=== PATIENT | female | born 1955 | race Caucasian/White ===

== ENCOUNTER → 2016-04-07 | Outpatient (CLI) | payer BC ==
[~2016-04-07] MED LIST: ALPRAZOLAM0.25 MG PO; AMBIEN10 MG PO; CEFDINIR300 MG PO; NORCO 325 MG-51 TAB PO; PROTONIX40 MG PO; SYNTHROID0.025 MG PO
[2016-04-07 09:42] VITALS: BP 151/74
[2016-04-07 11:32] VITALS: BP 122/60
== END ==
LOC: AMSURD 09:36
DX: R11.2 Nausea with vomiting, unspecified (principal); R19.7 Diarrhea, unspecified; M54.9 Dorsalgia, unspecified; R51 Headache
CPT/HCPCS: J1885; J2405; J7030

== ENCOUNTER → 2016-04-12 | Outpatient (CLI) | payer BC | LOC: LAB 13:54 | DX: J02.9 Acute pharyngitis, unspecified (principal) ==

== ENCOUNTER → 2016-06-13 | Outpatient (CLI) | payer BC | LOC: RAD 11:21 | DX: M41.86 Other forms of scoliosis, lumbar region (principal); M50.322 Other cervical disc degeneration at C5-C6 level; M50.321 Other cervical disc degeneration at C4-C5 level ==

== ENCOUNTER 2017-01-27 07:40 | Emergency (ER) | payer BC ==
[~2017-01-27 07:40] MED LIST changes: +SYNTHROID RP0.1 MG PO; -SYNTHROID0.025 MG PO
[2017-01-27 08:30] LABS: BASO # 0.1 (0.02-0.10); EOS # 0.1 (0.04-0.40); EOS % 1.8 % (1.0-5.0); HEMATOCRIT 42.8 % (37.0-47.0); HEMOGLOBIN 14.1 g/dL (12.5-16.0); LYMPH# 1.4 (1.50-4.00); MEAN CELL VOLUME 92 fl (78-100); MEAN CORPUSCULAR HEMOGLOBIN 31 pg (27-31); MEAN CORPUSCULAR HGB CONC 33 g/dL (33-37); MONO # 0.8 (0.20-0.80); NEU # 4.7 (1.40-6.50); PLATELET COUNT 315 K/mm3 (130-400); RED BLOOD COUNT 4.63 M/mm3 (4.10-5.30); WHITE BLOOD COUNT 7.1 K/mm3 (4.8-10.8)
[2017-01-27 08:38] LABS: ALBUMIN 4.4 g/dL (3.5-5.0); BUN/CREATININE RATIO 16.7 (6.0-26.0); CALCIUM 9.5 mg/dL (8.4-10.2); POTASSIUM 3.8 mmol/L (3.6-5.0); TOTAL BILIRUBIN 0.7 mg/dL (0.2-1.3); TOTAL PROTEIN 7.5 g/dL (6.3-8.2)
[2017-01-27 08:45] LABS: CKMB ISOENZYME 0.5 ng/mL (0.6-3.5)
[2017-01-27 08:49] LABS: TROPONIN-I < 0.03 ng/mL (0.00-0.06)
[2017-01-27 10:06] LABS: URINE APPEARANCE CLEAR; URINE BILIRUBIN NEGATIVE (NEGATIVE); URINE BLOOD NEGATIVE (NEGATIVE); URINE COLOR YELLOW; URINE GLUCOSE NEGATIVE (NEGATIVE); URINE KETONE NEGATIVE (NEGATIVE); URINE LEUKOCYTE ESTERASE NEGATIVE (NEGATIVE); URINE MUCUS PRESENT (NOT PRESENT); URINE NITRATE NEGATIVE (NEGATIVE); URINE PROTEIN(semi-quant) NEGATIVE (NEGATIVE); URINE UROBILINOGEN NORMAL (NORMAL); URINE WBC 0-1 /hpf (0-3)
[2017-01-27] MEDS ORDERED: TYLENOL 325MG325 MG PO (10:28)
[2017-01-27] MEDS ORDERED: MULTI VITAMINS1 TAB PO (10:28)
[2017-01-27] MEDS ORDERED: CALCIUM500 M1 (10:29)
[2017-01-27] MEDS ORDERED: CULTURELLE1 EACH PO (10:29)
[2017-01-27] MEDS ORDERED: LYSINE 500500 MG/TAB (10:29)
[2017-01-27] MEDS ORDERED: MAGNESIUM CHELA27 MG (10:29)
[2017-01-27] MEDS ORDERED: TURMERIC1 POW (10:32)
[2017-01-27] MEDS ORDERED: PERCOCET 325 MG1 TA2 PO (12:14)
[2017-01-27] MEDS ORDERED: ZOFRAN ODT8 M1 PO (12:14)
[2017-01-27 12:24] VITALS: BP 121/68
== END 2017-01-27 12:34 | disposition home or self-care (01) ==
LOC: ED 07:40
PROVIDERS: Physician Assistant
DX: B34.9 Viral infection, unspecified (principal); R51 Headache; R11.2 Nausea with vomiting, unspecified; E03.9 Hypothyroidism, unspecified; F41.9 Anxiety disorder, unspecified; K21.9 Gastro-esophageal reflux disease without esophagitis; E04.1 Nontoxic single thyroid nodule; R07.9 Chest pain, unspecified; R19.7 Diarrhea, unspecified; R00.0 Tachycardia, unspecified; Z88.8 Allergy status to other drugs, medicaments and biological substances
CPT/HCPCS: J1885; J2405; J2550; J7120

== ENCOUNTER 2017-05-18 16:58 | Inpatient (IN) | payer BC ==
[~2017-05-18] VITALS: Ht 165.1 cm; Wt 64.0 kg
[~2017-05-18 16:58] MED LIST changes: -ACETAMINOPHEN-H1 TA2 PO; -LEVOTHYROXIN0.088 MG PO; -PANTOPRAZOLE SO40 MG PO
[2017-05-18] MEDS ORDERED: LEVOTHYROXIN0.088 MG PO (17:41)
[2017-05-18] MEDS ORDERED: ALPRAZOLAM0.25 MG PO (17:42)
[2017-05-18] MEDS ORDERED: PANTOPRAZOLE SO40 MG PO (17:43)
[2017-05-18] MEDS ORDERED: ACETAMINOPHEN-H1 TA2 PO (17:44)
[2017-05-18 19:01] VITALS: BP 158/84
[2017-05-18 19:04] VITALS: BP 158/84
[2017-05-18 23:46] VITALS: BP 143/68
[2017-05-19 03:05] VITALS: BP 120/55
[2017-05-19 06:24] VITALS: BP 136/71
[2017-05-19 07:02] LABS: ALBUMIN 4.1 g/dL (3.5-5.0); BUN/CREATININE RATIO 6.8 (6.0-26.0); HEMATOCRIT 36.3 % (37.0-47.0); HEMOGLOBIN 11.9 g/dL (12.5-16.0); MEAN CELL VOLUME 91 fl (78-100); MEAN CORPUSCULAR HEMOGLOBIN 30 pg (27-31); MEAN CORPUSCULAR HGB CONC 33 g/dL (33-37); PLATELET COUNT 359 K/mm3 (130-400); RED BLOOD COUNT 3.98 M/mm3 (4.10-5.30); RED CELL DISTRIBUTION WIDTH 12.5 % (11.5-14.5); TOTAL BILIRUBIN 0.3 mg/dL (0.2-1.3); TOTAL PROTEIN 7.8 g/dL (6.3-8.2); WHITE BLOOD COUNT 10.3 K/mm3 (4.8-10.8)
[2017-05-19 07:16] LABS: LYMPHOCYTE 6 % (20-51); MONOCYTE 9 % (3-10); NEUTROPHILS 85 % (42-75)
[2017-05-19 11:28] VITALS: BP 138/65
[2017-05-19 15:30] VITALS: BP 150/89
[2017-05-19 19:10] VITALS: BP 131/59
[2017-05-19 23:04] VITALS: BP 129/57
[2017-05-20 02:31] VITALS: BP 130/60
[2017-05-20 06:25] VITALS: BP 127/69
[2017-05-20 11:29] VITALS: BP 144/74
[2017-05-20 12:15] LABS: BUN/CREATININE RATIO 10.7 (6.0-26.0); CALCIUM 9.4 mg/dL (8.4-10.2); POTASSIUM 3.8 mmol/L (3.6-5.0)
[2017-05-20 15:08] VITALS: BP 149/74
[2017-05-20 18:44] VITALS: BP 130/69
== END 2017-05-20 19:03 | disposition home or self-care (01) | DRG 195 ==
LOC: MED/SURG 16:58
PROVIDERS: ADMIT Internal Medicine
DX: J18.9 Pneumonia, unspecified organism (principal); R09.02 Hypoxemia; E03.9 Hypothyroidism, unspecified; F41.1 Generalized anxiety disorder; K21.9 Gastro-esophageal reflux disease without esophagitis; G47.00 Insomnia, unspecified; R91.1 Solitary pulmonary nodule; E04.1 Nontoxic single thyroid nodule
CPT/HCPCS: J1650; J1956; J2920; J2930; J3480

== ENCOUNTER → 2017-05-18 | Outpatient (CLI) | payer BC ==
[~2017-05-18] MED LIST changes: +ACETAMINOPHEN-H1 TA2 PO; +CALCIUM500 M1; +CULTURELLE1 EACH PO; +LEVOTHYROXIN0.088 MG PO; +LYSINE 500500 MG/TAB; +MAGNESIUM CHELA27 MG; +MULTI VITAMINS1 TAB PO; +PANTOPRAZOLE SO40 MG PO; +PERCOCET 325 MG1 TA2 PO; +TURMERIC1 POW; +TYLENOL 325MG325 MG PO; +ZOFRAN ODT8 M1 PO
[2017-05-18 16:20] LABS: BASO # 0.2 (0.02-0.10); EOS # 0.3 (0.04-0.40); EOS % 2.7 % (1.0-5.0); HEMATOCRIT 39.4 % (37.0-47.0); HEMOGLOBIN 12.9 g/dL (12.5-16.0); LYMPH# 2.1 (1.50-4.00); MEAN CELL VOLUME 92 fl (78-100); MEAN CORPUSCULAR HEMOGLOBIN 30 pg (27-31); MEAN CORPUSCULAR HGB CONC 33 g/dL (33-37); MEAN PLATELET VOLUME 9.8 fl (7.4-10.4); MONO # 1.2 (0.20-0.80); NEU # 6.9 (1.40-6.50); PLATELET COUNT 334 K/mm3 (130-400); RED BLOOD COUNT 4.29 M/mm3 (4.10-5.30); RED CELL DISTRIBUTION WIDTH 12.8 % (11.5-14.5); WHITE BLOOD COUNT 10.6 K/mm3 (4.8-10.8)
[2017-05-18 16:35] LABS: ALBUMIN 4.2 g/dL (3.5-5.0); BUN/CREATININE RATIO 4.7 (6.0-26.0); CALCIUM 8.8 mg/dL (8.4-10.2); POTASSIUM 3.7 mmol/L (3.6-5.0); TOTAL BILIRUBIN 0.4 mg/dL (0.2-1.3); TOTAL PROTEIN 8.1 g/dL (6.3-8.2)
== END ==
LOC: RAD 16:06
PROVIDERS: Internal Medicine
DX: R91.1 Solitary pulmonary nodule (principal); R05 Cough; R50.9 Fever, unspecified; R06.02 Shortness of breath; Z88.1 Allergy status to other antibiotic agents

== ENCOUNTER → 2017-05-25 | Outpatient (CLI) | payer BC ==
[2017-05-20 18:44] VITALS: BP 130/69
[~2017-05-25] MED LIST changes: +ACETAMINOPHEN-H1 TA2 PO; +LEVOTHYROXIN0.088 MG PO; +PANTOPRAZOLE SO40 MG PO
[2017-05-25 08:22] LABS: HEMATOCRIT 40.8 % (37.0-47.0); HEMOGLOBIN 13.2 g/dL (12.5-16.0); MEAN CELL VOLUME 93 fl (78-100); MEAN CORPUSCULAR HEMOGLOBIN 30 pg (27-31); MEAN CORPUSCULAR HGB CONC 32 g/dL (33-37); MEAN PLATELET VOLUME 8.7 fl (7.4-10.4); PLATELET COUNT 430 K/mm3 (130-400); RED BLOOD COUNT 4.41 M/mm3 (4.10-5.30); RED CELL DISTRIBUTION WIDTH 13.9 % (11.5-14.5); WHITE BLOOD COUNT 6.7 K/mm3 (4.8-10.8)
[2017-05-25 08:32] LABS: ALBUMIN 4.1 g/dL (3.5-5.0); CALCIUM 9.1 mg/dL (8.4-10.2); POTASSIUM 4.1 mmol/L (3.6-5.0); TOTAL BILIRUBIN 0.6 mg/dL (0.2-1.3); TOTAL PROTEIN 7.5 g/dL (6.3-8.2)
[2017-05-25 08:33] LABS: LYMPHOCYTE 18 % (20-51); MONOCYTE 11 % (3-10); NEUTROPHILS 64 % (42-75)
[2017-05-25 09:28] LABS: ERYTHROCYTE SEDIMENTATION RATE 43 mm/hr (0-30)
== END ==
LOC: RAD 08:04
PROVIDERS: Internal Medicine
DX: R91.8 Other nonspecific abnormal finding of lung field (principal); R91.1 Solitary pulmonary nodule; J18.9 Pneumonia, unspecified organism; J98.01 Acute bronchospasm; Z88.1 Allergy status to other antibiotic agents

== ENCOUNTER → 2017-11-30 | Outpatient (CLI) | payer BC ==
[2017-11-30 16:52] LABS: BASO # 0.1 (0.02-0.10); EOS # 0.2 (0.04-0.40); EOS % 3.4 % (1.0-5.0); HEMATOCRIT 40.3 % (37.0-47.0); HEMOGLOBIN 13.3 g/dL (12.5-16.0); LYMPH# 1.5 (1.50-4.00); MEAN CELL VOLUME 93 fl (78-100); MEAN CORPUSCULAR HEMOGLOBIN 31 pg (27-31); MEAN CORPUSCULAR HGB CONC 33 g/dL (33-37); MEAN PLATELET VOLUME 10.9 fl (7.4-10.4); MONO # 0.7 (0.20-0.80); NEU # 3.9 (1.40-6.50); PLATELET COUNT 256 K/mm3 (130-400); RED BLOOD COUNT 4.35 M/mm3 (4.10-5.30); RED CELL DISTRIBUTION WIDTH 13.4 % (11.5-14.5); WHITE BLOOD COUNT 6.4 K/mm3 (4.8-10.8)
[2017-11-30 16:58] LABS: ALBUMIN 4.4 g/dL (3.5-5.0); POTASSIUM 4.1 mmol/L (3.6-5.0); TOTAL BILIRUBIN 0.4 mg/dL (0.2-1.3); TOTAL PROTEIN 7.2 g/dL (6.3-8.2)
[2017-11-30 17:58] LABS: ERYTHROCYTE SEDIMENTATION RATE 11 mm/hr (0-30)
[2017-12-01 18:02] LABS: T3 TOTAL 72 ng/dL (87-178)
== END ==
LOC: LAB 16:08
PROVIDERS: Internal Medicine
DX: Z12.11 Encounter for screening for malignant neoplasm of colon (principal); Z00.00 Encounter for general adult medical examination without abnormal findings

== ENCOUNTER → 2018-03-08 | Outpatient (CLI) | payer BC ==
[2018-03-08 12:13] LABS: ALBUMIN 4.3 g/dL (3.5-5.0); DIRECT BILIRUBIN 0.3 mg/dL (0.0-0.4); TOTAL BILIRUBIN 0.4 mg/dL (0.2-1.3); TOTAL PROTEIN 6.8 g/dL (6.3-8.2)
[2018-03-09 17:22] LABS: T3 TOTAL 90 ng/dL (87-178)
== END ==
LOC: LAB 11:34
PROVIDERS: Internal Medicine
DX: Z00.00 Encounter for general adult medical examination without abnormal findings (principal); R94.5 Abnormal results of liver function studies

== ENCOUNTER → 2018-05-02 | Outpatient (CLI) | payer BC | LOC: RAD 10:41 | DX: M47.818 Spondylosis without myelopathy or radiculopathy, sacral and sacrococcygeal region (principal); M25.552 Pain in left hip ==

== ENCOUNTER → 2018-05-09 | Outpatient (CLI) | payer BC ==
[2018-05-09 11:49] LABS: ALBUMIN 4.2 g/dL (3.5-5.0); CALCIUM 8.6 mg/dL (8.4-10.2); POTASSIUM 3.6 mmol/L (3.6-5.0); TOTAL BILIRUBIN 0.5 mg/dL (0.2-1.3); TOTAL PROTEIN 7.2 g/dL (6.3-8.2)
[2018-05-09 11:56] LABS: HEMATOCRIT 37.7 % (37.0-47.0); HEMOGLOBIN 12.3 g/dL (12.5-16.0); MEAN CELL VOLUME 93 fl (78-100); MEAN CORPUSCULAR HEMOGLOBIN 30 pg (27-31); MEAN CORPUSCULAR HGB CONC 33 g/dL (33-37); MEAN PLATELET VOLUME 10.1 fl (7.4-10.4); PLATELET COUNT 258 K/mm3 (130-400); RED BLOOD COUNT 4.06 M/mm3 (4.10-5.30); RED CELL DISTRIBUTION WIDTH 13.4 % (11.5-14.5); WHITE BLOOD COUNT 7.6 K/mm3 (4.8-10.8)
[2018-05-09 12:17] LABS: LYMPHOCYTE 8 % (20-51); MONOCYTE 15 % (3-10); NEUTROPHILS 77 % (42-75)
== END ==
LOC: LAB 11:05
PROVIDERS: Physician Assistant
DX: R91.1 Solitary pulmonary nodule (principal); R50.9 Fever, unspecified; J98.9 Respiratory disorder, unspecified

== ENCOUNTER → 2018-05-21 | Outpatient (CLI) | payer BC ==
[2018-05-21 17:06] LABS: HEMATOCRIT 40.9 % (37.0-47.0); HEMOGLOBIN 13.2 g/dL (12.5-16.0); MEAN CELL VOLUME 93 fl (78-100); MEAN CORPUSCULAR HEMOGLOBIN 30 pg (27-31); MEAN CORPUSCULAR HGB CONC 32 g/dL (33-37); MEAN PLATELET VOLUME 9.4 fl (7.4-10.4); PLATELET COUNT 429 K/mm3 (130-400); RED BLOOD COUNT 4.39 M/mm3 (4.10-5.30); RED CELL DISTRIBUTION WIDTH 15.1 % (11.5-14.5)
[2018-05-21 17:27] LABS: ALBUMIN 4.4 g/dL (3.5-5.0); CALCIUM 9.5 mg/dL (8.4-10.2); POTASSIUM 4.5 mmol/L (3.6-5.0); TOTAL BILIRUBIN 0.4 mg/dL (0.2-1.3); TOTAL PROTEIN 7.1 g/dL (6.3-8.2)
[2018-05-21 18:04] LABS: LYMPHOCYTE 9 % (20-51); MONOCYTE 4 % (3-10); NEUTROPHILS 87 % (42-75)
[2018-05-21 18:13] LABS: ERYTHROCYTE SEDIMENTATION RATE 8 mm/hr (0-30)
== END ==
LOC: LAB 16:09
PROVIDERS: Internal Medicine
DX: J18.1 Lobar pneumonia, unspecified organism (principal); R91.8 Other nonspecific abnormal finding of lung field
CPT/HCPCS: Q9967

== ENCOUNTER → 2018-08-16 | Outpatient (CLI) | payer BC ==
[2018-08-16 16:01] LABS: EOS # 0.2 (0.04-0.40); EOS % 2.3 % (1.0-5.0); HEMATOCRIT 41.2 % (37.0-47.0); HEMOGLOBIN 13.3 g/dL (12.5-16.0); LYMPH# 1.4 (1.50-4.00); MEAN CELL VOLUME 94 fl (78-100); MEAN CORPUSCULAR HEMOGLOBIN 30 pg (27-31); MEAN CORPUSCULAR HGB CONC 32 g/dL (33-37); MEAN PLATELET VOLUME 9.6 fl (7.4-10.4); MONO # 0.6 (0.20-0.80); NEU # 4.3 (1.40-6.50); PLATELET COUNT 286 K/mm3 (130-400); RED BLOOD COUNT 4.39 M/mm3 (4.10-5.30); RED CELL DISTRIBUTION WIDTH 13.3 % (11.5-14.5); WHITE BLOOD COUNT 6.5 K/mm3 (4.8-10.8)
[2018-08-16 16:34] LABS: ALBUMIN 4.4 g/dL (3.4-4.8); CALCIUM 9.6 mg/dL (8.3-10.5); POTASSIUM 3.8 mmol/L (3.5-5.1); TOTAL BILIRUBIN 0.3 mg/dL (0.2-1.2)
[2018-08-16 17:11] LABS: ERYTHROCYTE SEDIMENTATION RATE 18 mm/hr (0-30)
[2018-08-17 20:21] LABS: ANA SCREEN with REFLEX Negative (Negative)
[2018-08-17 21:27] LABS: T3 TOTAL 81 ng/dL (87-178)
== END ==
LOC: RAD 15:42
PROVIDERS: Physician Assistant
DX: M19.071 Primary osteoarthritis, right ankle and foot (principal); E03.9 Hypothyroidism, unspecified; M25.552 Pain in left hip

== ENCOUNTER → 2018-11-07 | Outpatient (CLI) | payer BC ==
[2018-11-09 12:26] LABS: SEX HORMONE BINDING GLOBULIN 66.7 nmol/L (())
== END ==
LOC: LAB 08:30
PROVIDERS: Internal Medicine
DX: E03.9 Hypothyroidism, unspecified (principal)

== ENCOUNTER → 2018-12-31 | Outpatient (CLI) | payer BC ==
[2018-12-31 09:42] LABS: EOS # 0.2 (0.04-0.40); EOS % 2.8 % (1.0-5.0); HEMATOCRIT 44.6 % (37.0-47.0); HEMOGLOBIN 14.4 g/dL (12.5-16.0); LYMPH# 1.3 (1.50-4.00); MEAN CELL VOLUME 93 fl (78-100); MEAN CORPUSCULAR HEMOGLOBIN 30 pg (27-31); MEAN CORPUSCULAR HGB CONC 32 g/dL (33-37); MEAN PLATELET VOLUME 10.2 fl (7.4-10.4); MONO # 0.6 (0.20-0.80); NEU # 3.3 (1.40-6.50); PLATELET COUNT 301 K/mm3 (130-400); RED BLOOD COUNT 4.82 M/mm3 (4.10-5.30); RED CELL DISTRIBUTION WIDTH 12.7 % (11.5-14.5); WHITE BLOOD COUNT 5.4 K/mm3 (4.8-10.8)
[2018-12-31 10:01] LABS: POTASSIUM 4.2 mmol/L (3.5-5.1)
[2018-12-31 10:02] LABS: ALBUMIN 4.6 g/dL (3.4-4.8)
[2018-12-31 10:03] LABS: CALCIUM 9.7 mg/dL (8.3-10.5)
[2018-12-31 10:04] LABS: TOTAL PROTEIN 7.7 g/dL (6.2-8.1)
[2018-12-31 10:06] LABS: TOTAL BILIRUBIN 0.4 mg/dL (0.2-1.2)
[2018-12-31 10:55] LABS: ERYTHROCYTE SEDIMENTATION RATE 12 mm/hr (0-30)
== END ==
LOC: LAB 09:19
PROVIDERS: Internal Medicine
DX: Z00.00 Encounter for general adult medical examination without abnormal findings (principal); Z12.11 Encounter for screening for malignant neoplasm of colon

== ENCOUNTER → 2019-01-23 | Outpatient (CLI) | payer BC | LOC: RAD 10:00 → MAMMO 10:00 → RAD 10:13 | DX: Z12.31 Encounter for screening mammogram for malignant neoplasm of breast (principal); Z13.820 Encounter for screening for osteoporosis; M85.852 Other specified disorders of bone density and structure, left thigh ==

== ENCOUNTER → 2019-02-18 | Outpatient (CLI) | payer BC | LOC: LAB 10:04 | DX: E03.9 Hypothyroidism, unspecified (principal) ==

== ENCOUNTER → 2019-04-15 | Outpatient (CLI) | payer BC ==
[2019-04-15 22:50] LABS: IGM,SERUM 68 mg/dL (33-293); IMMUNOGLOBULIN A 140 mg/dL (69-517); IMMUNOGLOBULIN G 617 mg/dL (552-1631)
== END ==
LOC: LAB 09:46
PROVIDERS: Internal Medicine
DX: J45.901 Unspecified asthma with (acute) exacerbation (principal); J20.8 Acute bronchitis due to other specified organisms

== ENCOUNTER → 2019-07-11 | Outpatient (CLI) | payer BC ==
[2019-07-12] LABS: T3 TOTAL 71 ng/dL (87-178)
== END ==
LOC: LAB 15:05
PROVIDERS: Internal Medicine Endocrinology, Diabetes & Metabolism
DX: E03.9 Hypothyroidism, unspecified (principal); R63.5 Abnormal weight gain; G47.00 Insomnia, unspecified

== ENCOUNTER → 2019-08-26 | Outpatient (CLI) | payer BC | LOC: LAB 09:48 | DX: E03.9 Hypothyroidism, unspecified (principal) ==

== ENCOUNTER → 2019-12-31 | Outpatient (CLI) | payer BC | LOC: LAB 09:38 | DX: E03.9 Hypothyroidism, unspecified (principal) ==

== ENCOUNTER → 2020-01-13 | Outpatient (CLI) | payer BC | LOC: LAB 08:16 | DX: Z01.818 Encounter for other preprocedural examination (principal); Z20.828 Contact with and (suspected) exposure to other viral communicable diseases ==

== ENCOUNTER → 2020-02-10 | Outpatient (CLI) | payer BC ==
[2020-02-10 12:29] LABS: BASO # 0.1 (0.02-0.10); EOS # 0.1 (0.04-0.40); EOS % 2.1 % (1.0-5.0); HEMATOCRIT 43.2 % (37.0-47.0); HEMOGLOBIN 13.9 g/dL (12.5-16.0); LYMPH# 1.4 (1.50-4.00); MEAN CELL VOLUME 94 fl (78-100); MEAN CORPUSCULAR HEMOGLOBIN 30 pg (27-31); MEAN CORPUSCULAR HGB CONC 32 g/dL (33-37); MEAN PLATELET VOLUME 9.8 fl (7.4-10.4); MONO # 0.6 (0.20-0.80); NEU # 3.6 (1.40-6.50); PLATELET COUNT 308 K/mm3 (130-400); RED BLOOD COUNT 4.61 M/mm3 (4.10-5.30); RED CELL DISTRIBUTION WIDTH 13.3 % (11.5-14.5); WHITE BLOOD COUNT 5.7 K/mm3 (4.8-10.8)
[2020-02-10 12:41] LABS: ALBUMIN 4.4 g/dL (3.4-4.8); POTASSIUM 4.1 mmol/L (3.5-5.1)
[2020-02-10 12:42] LABS: CALCIUM 9.7 mg/dL (8.3-10.5)
[2020-02-10 12:43] LABS: TOTAL PROTEIN 7.2 g/dL (6.2-8.1)
[2020-02-10 12:45] LABS: TOTAL BILIRUBIN 0.4 mg/dL (0.2-1.2)
[2020-02-10 12:50] LABS: MAGNESIUM 2.3 mg/dL (1.60-2.60)
[2020-02-10 13:31] LABS: ERYTHROCYTE SEDIMENTATION RATE 18 mm/hr (0-30)
== END ==
LOC: LAB 12:14
PROVIDERS: Internal Medicine
DX: Z00.01 Encounter for general adult medical examination with abnormal findings (principal); Z12.11 Encounter for screening for malignant neoplasm of colon

== ENCOUNTER → 2020-03-11 | Outpatient (CLI) | payer MEDICARE, OTHER | LOC: LAB 09:39 | DX: M89.9 Disorder of bone, unspecified (principal); Z20.828 Contact with and (suspected) exposure to other viral communicable diseases ==

== ENCOUNTER 2020-05-20 08:03 | Outpatient (RCR) | payer MEDICARE, OTHER | END 2020-06-25 16:30 | disposition home or self-care (01) | LOC: PT 08:03 | DX: R51.9 Headache, unspecified (principal) ==

== ENCOUNTER → 2020-06-29 | Outpatient (CLI) | payer MEDICARE, OTHER ==
[~2020-06-29] MED LIST changes: +AMOXICILLIN AND1 TA2 PO; +LIOTHYRONINE SO5 MCG PO; +SINGULAIR PO; +SYNTHROID RP0.088 MG PO; +ZYRTEC ALLERGY10 MG PO
== END ==
LOC: RAD 10:51
DX: M50.322 Other cervical disc degeneration at C5-C6 level (principal); M43.12 Spondylolisthesis, cervical region

== ENCOUNTER 2020-07-14 04:43 | Emergency (ER) | payer MEDICARE, OTHER ==
[~2020-07-14 04:43] MED LIST changes: -AMOXICILLIN AND1 TA2 PO; -LIOTHYRONINE SO5 MCG PO; -SINGULAIR PO; -SYNTHROID RP0.088 MG PO; -ZYRTEC ALLERGY10 MG PO
[2020-07-14] MEDS ORDERED: SYNTHROID RP0.088 MG PO (04:49)
[2020-07-14] MEDS ORDERED: SINGULAIR PO (04:50)
[2020-07-14] MEDS ORDERED: ZYRTEC ALLERGY10 MG PO (04:50)
[2020-07-14] MEDS ORDERED: LIOTHYRONINE SO5 MCG PO (05:15)
[2020-07-14 05:57] LABS: URINE WBC 0 /hpf (0-3)
[2020-07-14 06:27] LABS: HEMATOCRIT 42.8 % (37.0-47.0); HEMOGLOBIN 13.5 g/dL (12.5-16.0); MEAN CELL VOLUME 94 fl (78-100); MEAN CORPUSCULAR HEMOGLOBIN 30 pg (27-31); MEAN CORPUSCULAR HGB CONC 32 g/dL (33-37); MEAN PLATELET VOLUME 9.8 fl (7.4-10.4); PLATELET COUNT 265 K/mm3 (130-400); RED BLOOD COUNT 4.57 M/mm3 (4.10-5.30); RED CELL DISTRIBUTION WIDTH 12.9 % (11.5-14.5); WHITE BLOOD COUNT 5.7 K/mm3 (4.8-10.8)
[2020-07-14 06:30] LABS: URINE APPEARANCE CLEAR; URINE BILIRUBIN NEGATIVE (NEGATIVE); URINE BLOOD NEGATIVE (NEGATIVE); URINE COLOR YELLOW; URINE GLUCOSE NEGATIVE (NEGATIVE); URINE KETONE NEGATIVE (NEGATIVE); URINE LEUKOCYTE ESTERASE NEGATIVE (NEGATIVE); URINE NITRATE NEGATIVE (NEGATIVE); URINE PROTEIN(semi-quant) NEGATIVE (NEGATIVE); URINE UROBILINOGEN NORMAL (NORMAL)
[2020-07-14 06:32] LABS: ALBUMIN 4.3 g/dL (3.4-4.8); POTASSIUM 4.1 mmol/L (3.5-5.1); SODIUM 138 mmol/L (136-145)
[2020-07-14 06:33] LABS: CALCIUM 8.9 mg/dL (8.3-10.5)
[2020-07-14 06:34] LABS: GLUCOSE 89 mg/dL (65-105); TOTAL PROTEIN 6.9 g/dL (6.2-8.1)
[2020-07-14 06:35] LABS: CARBON DIOXIDE 25 mmol/L (23-31)
[2020-07-14 06:36] LABS: TOTAL BILIRUBIN 0.7 mg/dL (0.2-1.2)
[2020-07-14 06:40] LABS: AST-SGOT 194 U/L (5-34)
[2020-07-14 06:41] LABS: ALT/SGPT 153 U/L (0-55); LIPASE 104 U/L (8-78)
[2020-07-14 06:44] LABS: LYMPHOCYTE 30 % (20-51); MONOCYTE 6 % (3-10); NEUTROPHILS 60 % (42-75)
[2020-07-14 06:51] LABS: PARTIAL THROMBOPLASTIN TIME 24.9 SECONDS (21.0-32.0); PROTHROMBIN TIME 10.4 SECONDS (9.0-12.0)
[2020-07-14 06:52] LABS: D-DIMER 0.75 mg/L FEU (0.15-0.50); TROPONIN-I < 0.03 ng/mL (<0.030)
[2020-07-14 09:53] VITALS: BP 143/77
== END 2020-07-14 09:54 ==
LOC: ED 04:43
PROVIDERS: Nurse Practitioner
DX: R07.9 Chest pain, unspecified (principal); F41.9 Anxiety disorder, unspecified; K21.9 Gastro-esophageal reflux disease without esophagitis; E07.9 Disorder of thyroid, unspecified; G47.00 Insomnia, unspecified; Z79.899 Other long term (current) drug therapy; Z79.890 Hormone replacement therapy
CPT/HCPCS: C9113; Q9967

== ENCOUNTER → 2020-07-28 | Outpatient (CLI) | payer MEDICARE, OTHER ==
[2020-07-14 09:53] VITALS: BP 143/77
[~2020-07-28] MED LIST changes: +AMOXICILLIN AND1 TA2 PO; +LIOTHYRONINE SO5 MCG PO; +SINGULAIR PO; +SYNTHROID RP0.088 MG PO; +ZYRTEC ALLERGY10 MG PO
[2020-07-28 16:24] LABS: ALBUMIN 4.5 g/dL (3.4-4.8)
[2020-07-28 16:27] LABS: TOTAL PROTEIN 7.3 g/dL (6.2-8.1)
[2020-07-28 16:28] LABS: TOTAL BILIRUBIN 0.2 mg/dL (0.2-1.2)
[2020-07-28 16:32] LABS: DIRECT BILIRUBIN 0.1 mg/dL (0.0-0.5)
== END ==
LOC: LAB 16:08
PROVIDERS: Internal Medicine
DX: R11.2 Nausea with vomiting, unspecified (principal); E03.9 Hypothyroidism, unspecified

== ENCOUNTER 2020-12-10 14:03 | Emergency (ER) | payer MEDICARE, OTHER ==
[~2020-12-10 14:03] MED LIST changes: -AMOXICILLIN AND1 TA2 PO
[2020-12-10] MEDS ORDERED: AMOXICILLIN AND1 TA2 PO (14:13)
[2020-12-10 15:29] LABS: BASO # 0.06 (0.02-0.10); EOS # 0.13 (0.04-0.40); EOS % 1.4 % (1.0-5.0); HEMATOCRIT 43.4 % (37.0-47.0); HEMOGLOBIN 13.8 g/dL (12.5-16.0); LYMPH# 1.13 (1.50-4.00); MEAN CELL VOLUME 97 fl (78-100); MEAN CORPUSCULAR HEMOGLOBIN 31 pg (27-31); MEAN CORPUSCULAR HGB CONC 32 g/dL (33-37); MONO # 0.94 (0.20-0.80); NEU # 7.19 (1.40-6.50); PLATELET COUNT 282 K/mm3 (130-400); RED BLOOD COUNT 4.49 M/mm3 (4.10-5.30); RED CELL DISTRIBUTION WIDTH 13.5 % (11.5-14.5); WHITE BLOOD COUNT 9.5 K/mm3 (4.8-10.8)
[2020-12-10 15:38] LABS: ALBUMIN 4.5 g/dL (3.4-4.8); POTASSIUM 3.8 mmol/L (3.5-5.1); SODIUM 142 mmol/L (136-145)
[2020-12-10 15:40] LABS: GLUCOSE 103 mg/dL (65-105)
[2020-12-10 15:41] LABS: TOTAL PROTEIN 7.6 g/dL (6.2-8.1)
[2020-12-10 15:42] LABS: CARBON DIOXIDE 26 mmol/L (23-31); TOTAL BILIRUBIN 0.3 mg/dL (0.2-1.2)
[2020-12-10 15:46] LABS: AST-SGOT 40 U/L (5-34)
[2020-12-10 15:47] LABS: ALT/SGPT 43 U/L (0-55); LIPASE 40 U/L (8-78)
[2020-12-10 15:57] LABS: PROTHROMBIN TIME 9.9 SECONDS (9.0-12.0)
[2020-12-10 16:01] LABS: TROPONIN-I < 0.03 ng/mL (<0.030)
[2020-12-10 16:33] LABS: D-DIMER 0.39 mg/L FEU (0.15-0.50)
[2020-12-10 16:53] LABS: URINE APPEARANCE CLEAR; URINE BILIRUBIN NEGATIVE (NEGATIVE); URINE BLOOD NEGATIVE (NEGATIVE); URINE COLOR LIGHT YELLOW; URINE GLUCOSE NEGATIVE (NEGATIVE); URINE KETONE NEGATIVE (NEGATIVE); URINE LEUKOCYTE ESTERASE NEGATIVE (NEGATIVE); URINE NITRATE NEGATIVE (NEGATIVE); URINE PROTEIN(semi-quant) NEGATIVE (NEGATIVE); URINE UROBILINOGEN NORMAL (NORMAL); URINE WBC 0-1 /hpf (0-3)
[2020-12-10 19:46] VITALS: BP 144/81
== END 2020-12-10 19:46 | disposition home or self-care (01) ==
LOC: ED 14:03
PROVIDERS: Nurse Practitioner Family
DX: J01.80 Other acute sinusitis (principal); B96.89 Other specified bacterial agents as the cause of diseases classified elsewhere; I87.8 Other specified disorders of veins; R07.89 Other chest pain; R00.2 Palpitations; R10.30 Lower abdominal pain, unspecified
CPT/HCPCS: J7030; Q9967

== ENCOUNTER → 2020-12-11 | Outpatient (CLI) | payer MEDICARE, OTHER ==
[~2020-12-11] MED LIST changes: +AMOXICILLIN AND1 TA2 PO
== END ==
LOC: RAD 11:18
DX: I87.8 Other specified disorders of veins (principal)

== ENCOUNTER → 2021-01-20 | Outpatient (CLI) | payer MEDICARE, OTHER | LOC: LAB 10:53 | DX: E03.9 Hypothyroidism, unspecified (principal) ==

== ENCOUNTER → 2021-04-01 | Outpatient (CLI) | payer MEDICARE, OTHER ==
[2021-04-01 15:43] LABS: BASO # 0.05 K/mm3 (0.02-0.10); EOS # 0.22 K/mm3 (0.04-0.40); EOS % 3.3 % (1.0-5.0); HEMATOCRIT 41.9 % (37.0-47.0); HEMOGLOBIN 13.4 g/dL (12.5-16.0); LYMPH# 0.62 K/mm3 (1.50-4.00); MEAN CELL VOLUME 96 fl (78-100); MEAN CORPUSCULAR HEMOGLOBIN 31 pg (27-31); MEAN CORPUSCULAR HGB CONC 32 g/dL (33-37); MEAN PLATELET VOLUME 9.8 fl (7.4-10.4); MONO # 0.61 K/mm3 (0.20-0.80); NEU # 5.07 K/mm3 (1.40-6.50); PLATELET COUNT 290 K/mm3 (130-400); RED BLOOD COUNT 4.38 M/mm3 (4.10-5.30); RED CELL DISTRIBUTION WIDTH 13.2 % (11.5-14.5); WHITE BLOOD COUNT 6.6 K/mm3 (4.8-10.8)
[2021-04-01 15:48] LABS: POTASSIUM 4.2 mmol/L (3.5-5.1)
[2021-04-01 15:49] LABS: ALBUMIN 4.4 g/dL (3.4-4.8)
[2021-04-01 15:50] LABS: CALCIUM 9.9 mg/dL (8.3-10.5)
[2021-04-01 15:51] LABS: TOTAL PROTEIN 6.9 g/dL (6.2-8.1)
[2021-04-01 15:53] LABS: TOTAL BILIRUBIN 0.3 mg/dL (0.2-1.2)
[2021-04-01 16:30] LABS: URINE APPEARANCE HAZY; URINE BILIRUBIN NEGATIVE (NEGATIVE); URINE BLOOD TRACE (NEGATIVE); URINE COLOR YELLOW; URINE GLUCOSE NEGATIVE (NEGATIVE); URINE KETONE NEGATIVE (NEGATIVE); URINE LEUKOCYTE ESTERASE NEGATIVE (NEGATIVE); URINE NITRATE NEGATIVE (NEGATIVE); URINE PROTEIN(semi-quant) TRACE (NEGATIVE); URINE UROBILINOGEN NORMAL (NORMAL); URINE WBC 0-1 /hpf (0-3)
[2021-04-01 16:58] LABS: ERYTHROCYTE SEDIMENTATION RATE 11 mm/hr (0-30)
[2021-04-01 23:03] LABS: T3 FREE 2.3 pg/mL (1.7-3.7)
== END ==
LOC: LAB 09:38
PROVIDERS: Internal Medicine
DX: Z12.11 Encounter for screening for malignant neoplasm of colon (principal); E88.01 Alpha-1-antitrypsin deficiency; E03.4 Atrophy of thyroid (acquired); M10.079 Idiopathic gout, unspecified ankle and foot; E78.2 Mixed hyperlipidemia; K90.9 Intestinal malabsorption, unspecified; R35.0 Frequency of micturition

== ENCOUNTER → 2021-04-02 | Outpatient (CLI) | payer MEDICARE, OTHER | LOC: LAB 11:53 | DX: U07.1 COVID-19 (principal) ==

== ENCOUNTER → 2021-11-23 | Outpatient (CLI) | payer MEDICARE, OTHER | LOC: RAD 08:56 | DX: K40.90 Unilateral inguinal hernia, without obstruction or gangrene, not specified as recurrent (principal) ==

== ENCOUNTER → 2021-12-01 | Outpatient (CLI) | payer MEDICARE, OTHER | LOC: MAMMO 08:30 | DX: Z12.31 Encounter for screening mammogram for malignant neoplasm of breast (principal) ==

== ENCOUNTER → 2021-12-01 | Outpatient (CLI) | payer MEDICARE, OTHER | LOC: RAD 08:36 → MAMMO 09:15 → RAD 09:15 | DX: Z12.31 Encounter for screening mammogram for malignant neoplasm of breast (principal); M85.80 Other specified disorders of bone density and structure, unspecified site; Z78.0 Asymptomatic menopausal state ==

== ENCOUNTER → 2021-12-02 | Outpatient (CLI) | payer MEDICARE, OTHER | LOC: RAD 16:32 | DX: R10.32 Left lower quadrant pain (principal) | CPT/HCPCS: Q9967 ==

== ENCOUNTER 2022-05-04 15:18 | Emergency (ER) | payer MEDICARE, OTHER ==
[~2022-05-04] VITALS: Wt 68.5 kg
[2022-05-04 15:59] LABS: BASO # 0.05 K/mm3 (0.02-0.10); EOS # 0.13 K/mm3 (0.04-0.40); EOS % 2.2 % (1.0-5.0); HEMATOCRIT 41.6 % (37.0-47.0); HEMOGLOBIN 13.5 g/dL (12.5-16.0); LYMPH# 1.25 K/mm3 (1.50-4.00); MEAN CELL VOLUME 96 fl (78-100); MEAN CORPUSCULAR HEMOGLOBIN 31 pg (27-31); MEAN CORPUSCULAR HGB CONC 33 g/dL (33-37); MEAN PLATELET VOLUME 9.9 fl (7.4-10.4); MONO # 0.52 K/mm3 (0.20-0.80); PLATELET COUNT 242 K/mm3 (130-400); RED BLOOD COUNT 4.35 M/mm3 (4.10-5.30); RED CELL DISTRIBUTION WIDTH 12.7 % (11.5-14.5); WHITE BLOOD COUNT 5.9 K/mm3 (4.8-10.8)
[2022-05-04 16:05] LABS: ALBUMIN 4.2 g/dL (3.4-4.8); POTASSIUM 3.9 mmol/L (3.5-5.1)
[2022-05-04 16:06] LABS: CALCIUM 9.9 mg/dL (8.3-10.5)
[2022-05-04 16:08] LABS: TOTAL PROTEIN 6.6 g/dL (6.2-8.1)
[2022-05-04 16:09] LABS: URINE APPEARANCE CLEAR; URINE COLOR YELLOW; URINE GLUCOSE NEGATIVE (NEGATIVE); URINE PROTEIN(semi-quant) NEGATIVE (NEGATIVE)
[2022-05-04 16:10] LABS: URINE BILIRUBIN NEGATIVE (NEGATIVE); URINE BLOOD 50 ery/uL (NEGATIVE); URINE KETONE NEGATIVE (NEGATIVE); URINE LEUKOCYTE ESTERASE NEGATIVE (NEGATIVE); URINE NITRATE NEGATIVE (NEGATIVE); URINE UROBILINOGEN NORMAL (NORMAL); URINE WBC 0-1 /hpf (0-3)
[2022-05-04 16:10] LABS: TOTAL BILIRUBIN 0.4 mg/dL (0.2-1.2)
[2022-05-04 17:06] VITALS: BP 126/70
== END 2022-05-04 16:55 | disposition home or self-care (01) ==
LOC: ED 15:18
PROVIDERS: Physician Assistant
DX: G43.809 Other migraine, not intractable, without status migrainosus (principal); Z28.310 Unvaccinated for COVID-19
CPT/HCPCS: J1200; J2765

== ENCOUNTER 2022-05-11 10:48 | Outpatient (RCR) | payer MEDICARE, OTHER | END 2022-06-10 | disposition home or self-care (01) | LOC: PT | DX: M76.71 Peroneal tendinitis, right leg (principal); M19.071 Primary osteoarthritis, right ankle and foot ==

== ENCOUNTER → 2022-06-10 | Outpatient (CLI) | payer MEDICARE, OTHER | LOC: RAD 09:00 → VAS 09:06 → RAD 09:06 | DX: G45.9 Transient cerebral ischemic attack, unspecified (principal) ==

== ENCOUNTER → 2023-01-05 | Outpatient (CLI) | payer MEDICARE, OTHER | LOC: RAD 09:51 | DX: M19.071 Primary osteoarthritis, right ankle and foot (principal) ==

== ENCOUNTER → 2023-11-27 | Outpatient (CLI) | payer MEDICARE, OTHER | LOC: RAD 12:15 | DX: M19.011 Primary osteoarthritis, right shoulder (principal) ==

== ENCOUNTER → 2024-01-09 | Outpatient (CLI) | payer MEDICARE, OTHER | LOC: RAD 08:00 | DX: N28.1 Cyst of kidney, acquired (principal); N26.1 Atrophy of kidney (terminal) ==

== ENCOUNTER → 2024-01-31 | Outpatient (CLI) | payer MEDICARE, OTHER | LOC: MAMMO 13:45 | DX: Z12.31 Encounter for screening mammogram for malignant neoplasm of breast (principal) ==

== ENCOUNTER → 2024-04-08 | Outpatient (CLI) | payer MEDICARE, OTHER | LOC: RAD 09:58 → MAMMO 10:00 | DX: Z13.820 Encounter for screening for osteoporosis (principal); M81.0 Age-related osteoporosis without current pathological fracture ==

== ENCOUNTER → 2024-05-31 | Outpatient (CLI) | payer MEDICARE, OTHER ==
[2024-05-31 08:04] LABS: BASO # 0.05 K/mm3 (0.02-0.10); EOS # 0.19 K/mm3 (0.04-0.40); EOS % 3.7 % (1.0-5.0); HEMATOCRIT 43.2 % (37.0-47.0); HEMOGLOBIN 14.5 g/dL (12.5-16.0); LYMPH# 1.28 K/mm3 (1.50-4.00); MEAN CELL VOLUME 95 fl (78-100); MEAN CORPUSCULAR HEMOGLOBIN 32 pg (27-31); MEAN CORPUSCULAR HGB CONC 34 g/dL (33-37); MEAN PLATELET VOLUME 10.1 fl (7.4-10.4); MONO # 0.56 K/mm3 (0.20-0.80); PLATELET COUNT 303 K/mm3 (130-400); RED BLOOD COUNT 4.54 M/mm3 (4.10-5.30); WHITE BLOOD COUNT 5.2 K/mm3 (4.8-10.8)
[2024-05-31 08:06] LABS: ALBUMIN 4.3 g/dL (3.4-4.8)
[2024-05-31 08:07] LABS: CALCIUM 9.3 mg/dL (8.3-10.5)
[2024-05-31 08:08] LABS: TOTAL PROTEIN 7.3 g/dL (6.2-8.1)
[2024-05-31 08:10] LABS: TOTAL BILIRUBIN 0.5 mg/dL (0.2-1.2)
[2024-05-31 08:15] LABS: MAGNESIUM 1.92 mg/dL (1.60-2.60)
[2024-05-31 23:02] LABS: PTH,INTACT 48.8 pg/mL (6.6-88.9)
== END ==
LOC: RAD 07:00 → LAB 07:13 → RAD 07:13
PROVIDERS: Internal Medicine
DX: K83.8 Other specified diseases of biliary tract (principal); E88.01 Alpha-1-antitrypsin deficiency; E03.4 Atrophy of thyroid (acquired); M10.9 Gout, unspecified; J45.20 Mild intermittent asthma, uncomplicated; E78.2 Mixed hyperlipidemia; M85.80 Other specified disorders of bone density and structure, unspecified site

== ENCOUNTER 2024-06-23 08:57 | Emergency (ER) | payer MEDICARE, OTHER ==
[~2024-06-23] VITALS: Ht 165.1 cm; Wt 74.0 kg
[2024-06-23] MEDS ORDERED: Ondansetron 4 MG/2 ML VIAL IV ONE (09:00)
[2024-06-23] MEDS ORDERED: NS 1,000 ML IV SCH (09:00)
[2024-06-23] MEDS ORDERED: PROGESTERONE200 MG PO (09:05)
[2024-06-23] MEDS ORDERED: FINASTERIDE1 MG PO (09:05)
[2024-06-23 09:34] LABS: BASO # 0.05 K/mm3 (0.02-0.10); EOS # 0.16 K/mm3 (0.04-0.40); EOS % 2.9 % (1.0-5.0); HEMATOCRIT 40.9 % (37.0-47.0); HEMOGLOBIN 13.8 g/dL (12.5-16.0); LYMPH# 1.28 K/mm3 (1.50-4.00); MEAN CELL VOLUME 93 fl (78-100); MEAN CORPUSCULAR HEMOGLOBIN 31 pg (27-31); MEAN CORPUSCULAR HGB CONC 34 g/dL (33-37); MEAN PLATELET VOLUME 9.9 fl (7.4-10.4); MONO # 0.56 K/mm3 (0.20-0.80); NEU # 3.47 K/mm3 (1.40-6.50); PLATELET COUNT 271 K/mm3 (130-400); RED CELL DISTRIBUTION WIDTH 12.7 % (11.5-14.5); WHITE BLOOD COUNT 5.5 K/mm3 (4.8-10.8)
[2024-06-23 09:39] LABS: SODIUM 139 mmol/L (136-145)
[2024-06-23 09:41] LABS: CALCIUM 8.9 mg/dL (8.3-10.5)
[2024-06-23 09:42] LABS: GLUCOSE 105 mg/dL (65-105); TOTAL PROTEIN 6.8 g/dL (6.2-8.1)
[2024-06-23 09:43] LABS: CARBON DIOXIDE 23 mmol/L (23-31)
[2024-06-23 09:44] LABS: TOTAL BILIRUBIN 0.4 mg/dL (0.2-1.2)
[2024-06-23 09:47] LABS: AST-SGOT 23 U/L (5-34)
[2024-06-23 09:48] LABS: ALT/SGPT 26 U/L (0-55)
[2024-06-23 09:56] LABS: TROPONIN-I < 0.030 ng/mL (0.00-0.033)
[2024-06-23 10:30] VITALS: BP 121/66
[2024-07-05] MEDS ORDERED: ISOSORBIDE30 MG PO (04:41)
[2024-07-05] MEDS ORDERED: MORPHINE SULFAT3010 PO (09:35)
[2024-07-05] MEDS ORDERED: ZOFRAN ODT4 MG PO (09:35)
== END 2024-06-23 10:32 | disposition home or self-care (01) ==
LOC: ED 08:57
PROVIDERS: Physician Assistant
DX: R07.89 Other chest pain (principal); R06.02 Shortness of breath; Z82.41 Family history of sudden cardiac death
CPT/HCPCS: J7030